=== PATIENT | male | born 1995 | race African-American/Black ===

== ENCOUNTER 2017-04-02 01:34 | Emergency (ER) | payer SELFPAY ==
[~2017-04-02] VITALS: Ht 185.4 cm; Wt 79.4 kg
[2017-04-02] MEDS ORDERED: NKM (01:49)
[2017-04-02] MEDS ORDERED: Albuterol ud Inhalation HHN ONE (02:15)
[2017-04-02] MEDS ORDERED: PredniSONE 20mg tab ORAL ONE (02:15)
[2017-04-02] MEDS ORDERED: Ipratropium 0.02% Inh Soln 2.5ml UD HHN ONE (02:15)
[2017-04-02] MEDS ORDERED: PROMETHAZINE-C118 M1 ORAL (02:52)
[2017-04-02] MEDS ORDERED: ALBUTEROL SULF8.5 GM INH (02:52)
[2017-04-02] MEDS ORDERED: PREDNISOLO15 MG/5 M1 ORAL (02:52)
--- NOTE | 2017-04-02 02:52 | Emergency Room Report ---
History of Present Illness General Chief Complaint: Abdominal Pain Source: Patient Present Illness HPI Is a 21-year-old male with no past medical history. He presents with chief complaint of a cough for the last month. Started out as a regular call but now just cough. Coughing to the point that he sometimes goes up. Coughing to the point where chest hurts. No fever or chills but worse with inspiration. Worse with exertion. No history of asthma or bronchitis. He already took cough medicine and antibiotics. Not helping. Allergies: Coded Allergies: No Known Allergies (Unverified , 04/02/17) Patient History Past Medical History: none, see triage record, old chart reviewed Past Surgical History: none Pertinent Family History: none Social History: Denies: smoking Immunizations: other Reviewed Nursing Documentation: PMH: Agreed, PSxH: Agreed Nursing Documentation-PM Past Medical History: No Stated History Review of Systems Eye: Denies: blurred vision, eye pain ENT: Denies: ear pain, nose congestion, throat swelling Respiratory: Reports: cough, Denies: shortness of breath Cardiovascular: Denies: chest pain, palpitations Gastrointestinal: Denies: abdominal pain, diarrhea, nausea, vomiting Musculoskeletal: Denies: back pain, joint pain Skin: Denies: rash Neurological: Denies: headache, numbness Endocrine: Denies: increased thirst, increased urine Hematologic/Lymphatic: Denies: easy bruising All Other Systems: negative except mentioned in HPI Physical Exam Vital Signs Date Time Temp Pulse Resp B/P Pulse Ox O2 Delivery O2 Flow Rate FiO2 04/02/17 01:45 98.2 91 14 118/79 99 Room Air vitals normal Sp02 EP Interpretation: reviewed, normal General Appearance: well appearing, no apparent distress, alert Head: normocephalic, atraumatic Eyes: bilateral eye EOMI, bilateral eye PERRL ENT: hearing grossly normal, normal pharynx Neck: full range of motion, supple, no meningismus Respiratory: chest non-tender, lungs clear, normal breath sounds, other - Coughing fits with inspiration Cardiovascular #1: regular rate, rhythm, no murmur Gastrointestinal: normal bowel sounds, non tender, no mass, no organomegaly, no bruit, non-distended Musculoskeletal: back normal, gait/station normal, normal range of motion Psychiatric: mood/affect normal Skin: warm/dry Medical Decision Making Diagnostic Impression: Primary Impression: Acute bronchitis with bronchospasm ER Course Patient presents with post viral bronchitis with bronchospasm. No evidence of pneumonia. He had negative x-ray before. I see no evidence of pneumonia. No evidence of ACS, PE, dissection to name a few. Better after breathing treatment. We'll discharge him. Last Vital Signs Date Time Temp Pulse Resp B/P Pulse Ox O2 Delivery O2 Flow Rate FiO2 04/02/17 02:38 89 18 100 Room Air 04/02/17 01:45 98.2 118/79 Status: improved Disposition: HOME, SELF-CARE Condition: Stable Scripts Codeine/Promethazine Hcl* (PROMETHAZINE-CODEINE SYRUP*) 118 Ml Syrup 10 ML ORAL Q6H Y for For Cough, #120 ML 0 Refills Prov: ZAHEER CINTRON M.D. 04/02/17 Prednisolone* (PRELONE*) 15 Mg/5 Ml Solution 60 MG ORAL DAILY for 4 Days, ML Prov: ZAHEER CINTRON M.D. 04/02/17 Albuterol Sulfate* (ALBUTEROL SULFATE MDI*) 8.5 Gm Hfa.aer.ad 2 PUFF INH Q4H Y for cough/wheezing, #1 EA 0 Refills Prov: ZAHEER CINTRON M.D. 04/02/17 Referrals: NOT CHOSEN CHRIS/,REFERRING (PCP) Additional Instructions: Followup with your DrJose in 2-5 days. Return if worse. ZAHEER CINTRON M.D. Apr 02, 2017 02:52
[2017-04-02 02:59] VITALS: BP 125/69
== END 2017-04-02 02:59 | disposition home or self-care (01) ==
LOC: EMR 02:25
DX: J20.9 Acute bronchitis, unspecified (principal)
CPT/HCPCS: 94640; 94664; 99284